=== PATIENT | female | born 1950 | race Caucasian/White ===

== ENCOUNTER 2025-07-19 22:19 | Emergency (ER) | payer BC ==
[2025-07-19] MEDS ORDERED: Famotidine/PF 20 mg/2ml Vial ONE (22:25)
[2025-07-19] MEDS ORDERED: diphenhydrAMINE 50 MG/ML VIAL ONE ×2 (22:25→22:30)
[2025-07-19] MEDS ORDERED: Racepinephrine 2.25% 0.5 ML NEB ONE (22:40)
== END 2025-07-19 23:40 | disposition home or self-care (01) ==
LOC: CSHERS 22:19
DX: T78.3XXA Angioneurotic edema, initial encounter (principal); T78.2XXA Anaphylactic shock, unspecified, initial encounter; Z79.899 Other long term (current) drug therapy
CPT/HCPCS: 94644; 94760; 96372; 96374; 96375; J0169; J1200; J2919

== ENCOUNTER 2025-08-29 10:31 | Outpatient (CLI) | payer BC | END 2025-08-29 10:32 | disposition home or self-care (01) | LOC: CSHMAMMO 10:31 | PROVIDERS: ATTEND Radiology Radiation Oncology | DX: Z08 Encounter for follow-up examination after completed treatment for malignant neoplasm (principal); Z85.3 Personal history of malignant neoplasm of breast | CPT/HCPCS: 77066; G0279 ==